=== PATIENT | female | born 1985 | race Caucasian/White ===

== ENCOUNTER 2020-10-12 10:40 | Outpatient (REF) | payer OTHER, SELFPAY ==
[2020-10-12 11:48] LABS: MANUAL DIFF FLAG NO
[2020-10-12 11:55] LABS: Basophils Percent Auto 0.5 % (0-2); Eosinophils Absolute Auto 0.2 X10*3/uL (0.0-0.4); Eosinophils Percent Auto 3.1 % (0-4); Hematocrit 44.1 % (37-47); Hemoglobin 14.7 g/dl (12.0-16.0); Imm Gran Abs Auto 0.02 X10*3/uL (0.00-0.03); Imm Gran Pct Auto 0.3 % (0.0-0.4); Lymphocytes Absolute Auto 3.5 X10*3/uL (1.2-4.9); Lymphocytes Percent Auto 45.9 % (20-40); Mean Corpuscular HGB Conc 33.3 g/dl (31.0-35.0); Mean Corpuscular Hemoglobin 26.9 pg (27.0-33.0); Mean Corpuscular Volume 80.8 fL (80-98); Mean Platelet Volume 12.1 fL (9.4-12.3); Monocytes Absolute Auto 0.4 X10*3/uL (0.1-1.2); Monocytes Percent Auto 5.9 % (2-11); Neutrophils Absolute Auto 3.3 X10*3/uL (2.0-8.3); Neutrophils Percent Auto 44.3 % (45-73); Platelet Count 234 X10*3/uL (160-400); Red Blood Count 5.46 X10*6/uL (4.20-5.50); Red Cell Distribution Width 13.8 % (11.0-16.0); White Blood Count 7.5 X10*3/uL (4.8-10.8)
[2020-10-12 12:35] LABS: Hemoglobin A1c % > 14.0 %
[2020-10-12 12:38] LABS: Thyroid Stimulating Hormone 2.04 uIU/mL (0.32-4.0)
[2020-10-12 12:47] LABS: Alanine Aminotransferase 42 U/L (0-31); Albumin Level 4.2 g/dL (3.5-5.0); Alkaline Phosphatase 96 U/L (39-117); Anion Gap 13 (12-20); Aspartate Amino Transferase 25 U/L (5-31); Bilirubin Total 0.7 mg/dL (0.0-1.0); Blood Urea Nitrogen 11 mg/dL (9-16); Calcium 9.3 mg/dL (8.4-10.2); Carbon Dioxide 28 mmol/L (22-29); Chloride 99 mmol/L (96-108); Cholesterol 136 mg/dL; Estimated Glomerular Filt Rate > 60; Glucose Fasting 322 mg/dL (60-99); HDL Cholesterol 28 mg/dL; LDL Cholesterol Calculated 85 mg/dl; Potassium 4.2 mmol/L (3.3-5.1); Sodium 136 mmol/L (135-145); Triglycerides 118 mg/dL
== END 2020-10-12 10:41 | disposition home or self-care (01) ==
LOC: HO.LAB 10:40
PROVIDERS: PCP Internal Medicine; Visit Provider Internal Medicine
DX: Z00.00 Encounter for general adult medical examination without abnormal findings (principal); E11.9 Type 2 diabetes mellitus without complications; E03.9 Hypothyroidism, unspecified
CPT/HCPCS: 36415; 80053; 80061; 82043; 83036; 84443; 85025

== ENCOUNTER 2021-01-10 09:09 | Emergency (ER) | payer OTHER, SELFPAY ==
--- NOTE | ~2021-01-10 | XR_ITS ---
EXAMINATION: XR FOOT, RIGHT CLINICAL INFORMATION: Trauma with pain right first toe. COMPARISON: None TECHNIQUE: AP, lateral, and oblique views of the right foot. FINDINGS: There is no evidence of acute fracture or dislocation of the right foot. Soft tissue swelling seen about the first distal phalanx. XR/XR foot RT min 3V IMPRESSION: No significant bony abnormality of the right foot identified.
[2021-01-10 10:14] VITALS: BP 138/86; PULSE 77; RESP 16; TEMP 36.4; O2SAT 98
[2021-01-10 10:53] VITALS: BMI 49.9
--- NOTE | 2021-01-10 11:02 | ED_ITS ---
HPI - Extremity Injury (Lower) General Chief Complaint: Extremity Injury, Lower Stated Complaint: Foot pain Time Seen by Provider: 01/10/21 10:19 Source: patient Mode of arrival: ambulatory Limitations: no limitations History of Present Illness HPI Narrative: 35 yo female here with complaints of right great toe pain after injury from pallet kelvin two days ago. Fevers, chills, redness, drainage Related Data Previous Rx's Medication Instructions Recorded metformin 500 mg tablet 500 mg PO BID #180 tab 10/15/20 blood sugar diagnostic (FreeStyle #100 ea 10/29/20 Lite Strips) blood-glucose meter (FreeStyle #1 ea 10/29/20 Lite Meter) lancets 28 gauge (FreeStyle #100 ea 10/29/20 Lancets) Allergies Allergy/AdvReac Type Severity Reaction Status Date / Time No Known Allergies Allergy Verified 10/15/20 15:31 Review of Systems Review of Systems: Yes all other systems are reviewed and are negative Constitutional: Constitutional: Reports no additional constitutional comp laints, Denies body ache(s), Denies chills, Denies fever(s), Denies headache(s) and Denies weakness Eyes: Eyes: Reports no additional eye complaints and Denies change in vision ENT: Reports system reviewed and no additional complaints, except as documented, Denies dizziness, Denies headache(s), Denies nasal congestion, Denies nasal discharge and Denies neck pain Cardiovascular: Cardiovascular: Reports no additional cardiovascular complaints, Denies chest pain, Denies leg edema and Denies dyspnea Respiratory: Respiratory: Reports no additional respiratory complaints, Denies cough and Denies dyspnea Gastrointestinal: Gastrointestinal: Reports no additional gastrointestinal complaints, Denies abdominal pain, Denies diarrhea, Denies nausea and Denies vomiting Genitourinary: Genitourinary: Reports no additional female genitourinary complaints and Denies urinary incontinence Musculoskeletal: Musculoskeletal: Reports no additional musculoskeletal complaints, Denies back pain, Reports arthralgias, Denies joint swelling, Denies neck pain, Denies numbness and Denies tingling Integumentary/Breasts: Skin/Breast: Reports system reviewed and no additional complaints, except as docu and Denies rash Neurologic: Reports system reviewed and no additional complaints, except as documented, Denies dizziness, Denies headache(s), Denies numbness, Denies tingling and Denies weakness PMFSH Past Medical History Medical History (Updated 01/10/21 @ 11:03 by Yolette Rich NP) Diabetes mellitus Surgical History History of hernia surgery Family History Family History Mother No problems noted. Father No problems noted. Social History Social History Alcohol intake: never Advance Directives: Yes Advance Directives Information Provided: Yes Advance Directives on File: No Patient : No Physical Exam Vital Signs: Vital Signs: Last Vital Signs Temp 97.6 F 01/10/21 10:14 Pulse 77 01/10/21 10:14 Resp 16 01/10/21 10:14 BP 138/86 01/10/21 10:14 Pulse Ox 98 01/10/21 10:14 Body Mass Index 49.9 Course Course Course Narrative: 35 yo female here with great toe pain s/p crush injury 2 days ago. X-rays show no fracture. Likely contusion. Small abrasion just under the distal nail bed but nail is intact. Placed in post-op shoe for comfort. Reviewed worrisome signs.symptoms with patient and when to return to ED. Comfortable with discharge home. Procedures Procedure Narrative Procedure Narrative: post operative shoe MDM - Extremity Injury (Lower) Medical Records Attestation: I reviewed the patient's medical records. Lab Data Attestation: I reviewed the patient's lab results. Imaging Data foot x-ray: Attestation: I personally reviewed and interpreted this imaging study as follows: Radiologist's impression: EXAMINATION: XR FOOT, RIGHT CLINICAL INFORMATION: Trauma with pain right first toe.? COMPARISON: None? TECHNIQUE: AP, lateral, and oblique views of the right foot. FINDINGS: There is no evidence of acute fracture or dislocation of the right foot. Soft tissue swelling seen about the first distal phalanx.? XR/XR foot RT min 3V IMPRESSION: No significant bony abnormality of the right foot identified. Discharge Plan Discharge Clinical Impression: Contusion of foot, right Qualifiers: Encounter type: initial encounter Qualified Code(s): S90.31XA - Contusion of right foot, initial encounter Patient Disposition: Home, Self-Care Instructions: Foot Contusion (ED) Additional Instructions: Your x-rays show no acute fracture Ice, elevate, shoe for comfort Epsom salt soaks 15 minutes three times daily Prescriptions: No Action (DME) FreeStyle Lite Strips Strip See Rx Instructions .ROUTE .MEDSUPPLY Qty: 100 RF: 8 (DME) blood-glucose meter [FreeStyle Lite Meter] Kit See Rx Instructions .ROUTE .MEDSUPPLY Qty: 1 RF: 0 (DME) lancets [FreeStyle Lancets] 28 gauge misc See Rx Instructions .ROUTE .MEDSUPPLY Qty: 100 RF: 8 metformin 500 mg tablet 500 mg PO BID Qty: 180 RF: 4 Referrals: Joshua Becerra MD [Primary Care Provider] - 2 days Stand Alone Forms: Work/School Release
== END 2021-01-10 11:37 | disposition home or self-care (01) ==
PROVIDERS: Emergency Provider Emergency Medicine; PCP Internal Medicine
DX: S90.31XA Contusion of right foot, initial encounter (principal); S90.411A Abrasion, right great toe, initial encounter; Y29.XXXA Contact with blunt object, undetermined intent, initial encounter; M79.671 Pain in right foot; Y93.9 Activity, unspecified; Y92.9 Unspecified place or not applicable; Y99.9 Unspecified external cause status; Z79.899 Other long term (current) drug therapy
CPT/HCPCS: 73630; 99284

== ENCOUNTER 2021-01-25 00:31 | Emergency (ER) | payer OTHER, SELFPAY ==
[2021-01-25 01:48] VITALS: BP 118/85; PULSE 83; RESP 20; TEMP 36.8; O2SAT 97; BMI 49.9
--- NOTE | 2021-01-25 05:23 | PC.NURSE ---
Pt requesting to leave, states she wants to f/u with . aware. MD at bedside for primary eval.
--- NOTE | 2021-01-25 05:56 | ED.GENADULT ---
HPI - General Adult General Chief complaint: Extremity Injury, Lower Stated complaint: Leg pain Time Seen by Provider: 01/25/21 05:55 Source: patient Mode of arrival: ambulatory History of Present Illness HPI narrative: 35-year-old female with history of diabetes who presents with 2 days of worsening bilateral lower extremity discomfort after being on her feet all day at work. The pain goes from her feet up into her lower legs but has not been associated with recent travel, calf pain, immobility, fevers, chills. Related Data Previous Rx's Medication Instructions Recorded metformin 500 mg tablet 500 mg PO BID #180 tab 10/15/20 blood sugar diagnostic (FreeStyle #100 ea 10/29/20 Lite Strips) blood-glucose meter (FreeStyle #1 ea 10/29/20 Lite Meter) lancets 28 gauge (FreeStyle #100 ea 10/29/20 Lancets) Allergies Allergy/AdvReac Type Severity Reaction Status Date / Time No Known Allergies Allergy Verified 01/15/21 11:00 Review of Systems Review of Systems: Pertinent positives and negatives as stated in HPI 10 point review of systems is otherwise negative. PMFSH Past Medical History Source: nursing notes reviewed Medical History Diabetes mellitus Morbid obesity Type 2 diabetes mellitus with obesity Surgical History History of hernia surgery Family History Family History Mother No problems noted. Father No problems noted. Social History Social History Alcohol intake: never Patient Tobacco Use Status: Never used Tobacco Second Hand Smoke Exposure: No Advance Directives: No Advance Directives Information Provided: No Patient : No Physical Exam Vital Signs: Vital Signs: Last Vital Signs Temp 98.2 F 01/25/21 01:48 Pulse 83 01/25/21 01:48 Resp 20 01/25/21 01:48 BP 118/85 01/25/21 01:48 Pulse Ox 97 01/25/21 01:48 Body Mass Index 49.9 VITAL SIGNS: Reviewed. GENERAL: Obese, Well developed, well nourished, in no acute distress. HEAD: Normocephalic/atraumatic EYES: PERRLA, EOMI LUNGS: Normal breath sounds. No adventitious sounds or accessory muscle use. SpO2<97> CARDIOVASCULAR: Regular rate and rhythm without noted murmurs ABDOMEN: Soft, non-tender, non-distended with bowel sounds. MUSCULOSKELETAL: No tenderness, deformities, or effusions noted on gross inspection. EXTREMITIES: No cyanosis, clubbing or edema, no erythema to bilateral feet SKIN: Inspection of the skin reveals no rashes NEUROLOGIC: Alert and oriented x 4 Course Course Course Narrative: This is a 35-year-old female with history and clinical presentation consistent with bilateral leg pain secondary to long hours of standing and being obese. There is no evidence to suggest DVT, cellulitis. Patient was given extensive instructions regarding appropriate footwear as well as the use of compression stockings. She acknowledges understanding and will be discharged home in stable condition with instructions to follow-up with her primary care provider. Discharge Plan Discharge Clinical Impression: Bilateral lower extremity pain Patient Disposition: Home, Self-Care Instructions: Leg Pain (ED), Venous Insufficiency (DC) Additional Instructions: 1. Use medias de compresi?n, hasta la rodilla, en ambas piernas. Debe ser un m?camilo de 30 mmHg. 2. Adem?s, debe adquirir buenos zapatos con suficiente soporte para soportar las largas horas que est? de pie. 3. Realice un seguimiento con betancur proveedor de atenci?n primaria en los pr?ximos 2-3 d?as para frederic reevaluaci?n y un tratamiento ambulatorio adicional. Regrese a la liborio de emergencias si navneet s?ntomas empeoran de manera aguda. Prescriptions: No Action (DME) FreeStyle Lite Strips Strip See Rx Instructions .ROUTE .MEDSUPPLY Qty: 100 RF: 8 (DME) blood-glucose meter [FreeStyle Lite Meter] Kit See Rx Instructions .ROUTE .MEDSUPPLY Qty: 1 RF: 0 (DME) lancets [FreeStyle Lancets] 28 gauge misc See Rx Instructions .ROUTE .MEDSUPPLY Qty: 100 RF: 8 metformin 500 mg tablet 500 mg PO BID Qty: 180 RF: 4 Referrals: Joshua Becerra MD [Primary Care Provider] - 2 days Stand Alone Forms: Work/School Release Print Language: Vietnamese
== END 2021-01-25 06:16 | disposition home or self-care (01) ==
PROVIDERS: Emergency Provider Student in an Organized Health Care Education/Training Program; PCP Internal Medicine
DX: M79.604 Pain in right leg (principal); M79.605 Pain in left leg; Z79.899 Other long term (current) drug therapy
CPT/HCPCS: 99281; 99283

== ENCOUNTER 2021-10-30 06:34 | Outpatient (REF) | payer OTHER, SELFPAY ==
[2021-10-30 06:56] LABS: MANUAL DIFF FLAG NO
[2021-10-30 07:31] LABS: Basophils Percent Auto 0.4 % (0-2); Eosinophils Absolute Auto 0.2 X10*3/uL (0.0-0.4); Eosinophils Percent Auto 2.5 % (0-4); Hematocrit 41.6 % (37.0-47.0); Hemoglobin 13.9 g/dl (12.0-16.0); Imm Gran Abs Auto 0.01 X10*3/uL (0.00-0.03); Imm Gran Pct Auto 0.1 % (0.0-0.4); Lymphocytes Absolute Auto 3.4 X10*3/uL (1.2-4.9); Lymphocytes Percent Auto 45.7 % (20-40); Mean Corpuscular HGB Conc 33.4 g/dl (31.0-35.0); Mean Corpuscular Hemoglobin 26.8 pg (27.0-33.0); Mean Corpuscular Volume 80.2 fL (80.0-98.0); Mean Platelet Volume 11.5 fL (9.4-12.3); Monocytes Absolute Auto 0.5 X10*3/uL (0.1-1.2); Monocytes Percent Auto 6.5 % (2-11); Neutrophils Absolute Auto 3.4 x10*3/uL (2.0-8.3); Neutrophils Percent Auto 44.8 % (45-73); Platelet Count 249 X10*3/uL (160-400); Red Blood Count 5.19 X10*6/uL (4.20-5.50); Red Cell Distribution Width 13.5 % (11.0-16.0); White Blood Count 7.5 X10*3/uL (4.8-10.8)
[2021-10-30 07:41] LABS: Estimated Average Glucose 329 mg/dL; Hemoglobin A1c % 13.1 %
[2021-10-30 07:55] LABS: Alanine Aminotransferase 45 U/L (0-31); Albumin Level 4.2 g/dL (3.5-5.0); Alkaline Phosphatase 85 U/L (39-117); Anion Gap 14 (12-20); Aspartate Amino Transferase 24 U/L (5-31); Bilirubin Total 0.5 mg/dL (0.0-1.0); Blood Urea Nitrogen 16 mg/dL (9-16); Calcium 9.8 mg/dL (8.4-10.2); Carbon Dioxide 26 mmol/L (22-29); Chloride 98 mmol/L (96-108); Cholesterol 128 mg/dL; Estimated Glomerular Filt Rate > 60; Glucose Fasting 321 mg/dL (60-99); HDL Cholesterol 28 mg/dL; LDL Cholesterol Calculated 76 mg/dl; Potassium 4.2 mmol/L (3.3-5.1); Sodium 134 mmol/L (135-145); Total Protein 7.3 g/dL (6.5-8.0); Triglycerides 123 mg/dL
[2021-10-30 08:19] LABS: Creatinine Urine 101.08 mg/dL; Microalbum/Creatinine Ratio Ur 39.5 ug/mg cr
== END 2021-10-30 06:35 | disposition home or self-care (01) ==
LOC: HO.LAB 06:34
PROVIDERS: PCP Internal Medicine; Visit Provider Internal Medicine
DX: Z00.00 Encounter for general adult medical examination without abnormal findings (principal); Z13.9 Encounter for screening, unspecified; Z13.0 Encounter for screening for diseases of the blood and blood-forming organs and certain disorders involving the immune mechanism; E11.69 Type 2 diabetes mellitus with other specified complication; E66.01 Morbid (severe) obesity due to excess calories
CPT/HCPCS: 36415; 80053; 80061; 82043; 83036; 85025

== ENCOUNTER → 2021-11-06 12:50 | Outpatient (BNVA) | payer OTHER, SELFPAY | PROVIDERS: PCP Internal Medicine; Visit Provider Dietitian, Registered | DX: E11.69 Type 2 diabetes mellitus with other specified complication (principal); E66.9 Obesity, unspecified; Z68.43 Body mass index [BMI] 50.0-59.9, adult | CPT/HCPCS: 97802 ==

== ENCOUNTER 2022-10-22 07:02 | Outpatient (REF) | payer OTHER, SELFPAY ==
[2022-10-22 07:13] LABS: MANUAL DIFF FLAG NO
[2022-10-22 07:36] LABS: Basophils Absolute Auto 0.1 X10*3/uL (0.0-0.2); Basophils Percent Auto 0.6 % (0-2); Eosinophils Absolute Auto 0.2 X10*3/uL (0.0-0.4); Eosinophils Percent Auto 2.5 % (0-4); Hematocrit 43.3 % (37.0-47.0); Hemoglobin 14.6 g/dl (12.0-16.0); Imm Gran Abs Auto 0.02 X10*3/uL (0.00-0.03); Imm Gran Pct Auto 0.3 % (0.0-0.4); Lymphocytes Absolute Auto 3.3 X10*3/uL (1.2-4.9); Mean Corpuscular HGB Conc 33.7 g/dl (31.0-35.0); Mean Corpuscular Hemoglobin 27.6 pg (27.0-33.0); Mean Corpuscular Volume 81.9 fL (80.0-98.0); Mean Platelet Volume 11.1 fL (9.4-12.3); Monocytes Absolute Auto 0.4 X10*3/uL (0.1-1.2); Monocytes Percent Auto 5.2 % (2-11); Neutrophils Absolute Auto 3.9 x10*3/uL (2.0-8.3); Neutrophils Percent Auto 49.4 % (45-73); Platelet Count 247 X10*3/uL (160-400); Red Blood Count 5.29 X10*6/uL (4.20-5.50); Red Cell Distribution Width 12.5 % (11.0-16.0); White Blood Count 7.9 X10*3/uL (4.8-10.8)
[2022-10-22 08:30] LABS: Alanine Aminotransferase 49 U/L (0-31); Albumin Level 4.2 g/dL (3.5-5.0); Alkaline Phosphatase 94 U/L (39-117); Anion Gap 13 (12-20); Aspartate Amino Transferase 28 U/L (5-31); Bilirubin Total 0.8 mg/dL (0.0-1.0); Blood Urea Nitrogen 14 mg/dL (9-16); Calcium 9.4 mg/dL (8.4-10.2); Carbon Dioxide 25 mmol/L (22-29); Chloride 102 mmol/L (96-108); Cholesterol 136 mg/dL; Estimated Glomerular Filt Rate > 60; Glucose Fasting 302 mg/dL (60-99); HDL Cholesterol 28 mg/dL; LDL Cholesterol Calculated 90 mg/dl; Potassium 4.2 mmol/L (3.3-5.1); Sodium 136 mmol/L (135-145); Total Protein 7.1 g/dL (6.5-8.0); Triglycerides 93 mg/dL
[2022-10-22 08:32] LABS: Estimated Average Glucose 295 mg/dL; Hemoglobin A1c % 11.9 %
[2022-10-22 09:51] LABS: Thyroid Stimulating Hormone 3.17 uIU/mL (0.32-4.0)
[2022-10-22 11:02] LABS: Creatinine Urine 92.56 mg/dL; Microalbum/Creatinine Ratio Ur 33.4 ug/mg cr
== END 2022-10-22 07:03 | disposition home or self-care (01) ==
LOC: HO.LAB 07:02
PROVIDERS: PCP Internal Medicine; Visit Provider Internal Medicine
DX: E11.69 Type 2 diabetes mellitus with other specified complication (principal); E66.01 Morbid (severe) obesity due to excess calories; E03.9 Hypothyroidism, unspecified; N28.9 Disorder of kidney and ureter, unspecified; E78.5 Hyperlipidemia, unspecified; D64.9 Anemia, unspecified
CPT/HCPCS: 36415; 80053; 80061; 82043; 83036; 84443; 85025

== ENCOUNTER 2023-12-25 16:20 | Emergency (ER) | payer OTHER, SELFPAY ==
--- NOTE | ~2023-12-25 | US_ITS ---
EXAMINATION: US PELVIS CLINICAL INFORMATION: Pain. COMPARISON: None available. TECHNIQUE: Ultrasound of the pelvis is performed using transabdominal transducers along with Doppler. Transvaginal imaging is performed due to inadequate visualization transabdominally. Transvaginal study declined. . FINDINGS: Uterus: The uterus is anteverted and measures 10 x 4.8 x 6.6 cm. The double wall endometrial thickness is 17 mm. The uterus is smooth in contour and has normal myometrial echogenicity. No visible fibroid. Adnexa: Both ovaries are visualized. There is normal color flow to the adnexa. There is no ovarian torsion. There is no pelvic ascites or fluid collection. Right ovary measures 3.5 x 2.5 x 2.7 cm. 12.4 Left ovary measures 4.6 x 4 0.4, 0.6 cm. 44.3 US/US pelvic and transvaginal IMPRESSION: No significant abnormality identified.
--- NOTE | ~2023-12-25 | CT_ITS ---
EXAMINATION: CT ABDOMEN AND PELVIS WITHOUT CONTRAST CLINICAL INFORMATION: Flank pain COMPARISON: None available. TECHNIQUE: Multidetector volumetric imaging was performed from the superior aspect of the liver through the pubic symphysis. Sagittal and coronal reformatted images were obtained on the technologist's workstation. This CT examination was performed using dose optimization techniques as appropriate, variously including the following: *Automated exposure control *Adjustment of mA and/or kV according to patient size (this includes techniques or standardized protocols for targeted exams where dose is matched to indication/reason for exam; i.e. extremities or head) *Use of iterative reconstruction technique DLP: 1216 mGy-cm FINDINGS: LUNG BASES: The visualized lung bases are unremarkable. LIVER, GALLBLADDER, AND BILIARY TREE: Liver is enlarged. Right lobe liver measures 22 cm superior-inferior. No focal liver lesion or intrahepatic bile duct dilatation. The gallbladder is unremarkable with no evidence of radiopaque gallstones, gallbladder wall thickening, or obvious pericholecystic inflammatory changes. PANCREAS: Unremarkable. SPLEEN: Unremarkable. ADRENAL GLANDS: Unremarkable. KIDNEYS AND URETERS: The kidneys are normal in size, shape, and attenuation. No hydronephrosis, hydroureter, or calculi seen. No perinephric stranding. BLADDER: Unremarkable. GASTROINTESTINAL TRACT: The small and large bowel are unremarkable. The appendix is unremarkable. ABDOMINAL WALL: No significant hernia is appreciated. LYMPH NODES: Normal. VASCULAR: Unremarkable. PELVIC VISCERA: Uterus is anteverted. Left ovary is larger than the right. Left ovary measures about 5.5 x 3.7 cm. The right ovary measures 3.2 x 3 cm. There is edema in the fat planes around the left ovary. No significant fluid however in the cul-de-sac. OSSEOUS STRUCTURES: Unremarkable. CT/CT abdomen pelvis wo IV con IMPRESSION: 1. Left ovary is larger than the right. There is edema in the fat planes around the left ovary. No significant fluid however in the cul-de-sac. Consider pelvic ultrasound for further evaluation. 2. Normal kidneys, ureter and bladder. 3. Hepatomegaly. Fleischner guidelines were followed.
--- NOTE | ~2023-12-25 | US_ITS ---
See above combined report for details.
--- NOTE | ~2023-12-25 | XR_ITS ---
EXAMINATION: XR CHEST CLINICAL INFORMATION: Shortness of breath. COMPARISON: None available. TECHNIQUE: 2 views of the chest were obtained. FINDINGS: Normal appearance of the cardiomediastinal silhouette. Slightly increased reticular markings in the medial right lower lung. No dense consolidation. No pleural effusion or pneumothorax. No acute osseous findings. Visualized upper abdomen is within normal limits. XR/XR chest 2V IMPRESSION: Slightly increased reticular markings in the medial right lower lung which could be related with bronchovascular crowding or focal small airways disease. Recommend clinical correlation and follow-up to ensure resolution.
[2023-12-25 16:56] VITALS: BP 157/86; PULSE 96; RESP 18; TEMP 36.4; O2SAT 98; BMI 47.3
--- NOTE | 2023-12-25 16:59 | ED_ITS ---
HPI - General Adult General Chief complaint: Abdominal Pain Stated complaint: body pain, sob, nausea Time Seen by Provider: 12/25/23 16:58 Source: patient Mode of arrival: ambulatory Limitations: no limitations History of Present Illness ED Provider: Donya Ha PA-C HPI narrative: Patient is a 38 year old assigned female at with a history of DM presenting to the emergency department today with abdominal pain, flank pain, nausea, vomiting, diarrhea, and painful urination. Patient states that over the last 4 days she has had abdominal pain, nausea, vomiting, diarrhea, painful urination, and bilateral flank pain. Patient denies any dizziness, lightheadedness, fever, chills, blurry vision, double vision, loss of vision, chest pain, difficulty breathing, shortness of breath, night sweats, increased urinary frequency, increased urinary urgency, blood in her urine or stool, syncope or a near syncopal episode, recent trauma or falls, bowel incontinence, bladder incontinence, or any other complaints at this time. Onset (ago): day(s) (4) Location: back, abdomen, left and right Severity: mild Severity scale (1-10): 5 Relieving factors: none Exacerbating factors: none Associated symptoms: nausea/vomiting Treatments prior to arrival: none Related Data Previous Rx's ?Medication ?Instructions ?Recorded blood-glucose meter (FreeStyle #1 ea 10/29/20 Lite Meter kit) lancets 28 gauge (FreeStyle #100 ea 10/29/20 Lancets) blood sugar diagnostic (FreeStyle #100 ea 01/13/22 Lite Strips) fluconazole 100 mg tablet 100 mg PO DAILY #3 tabs 10/16/22 (Diflucan) metformin 500 mg tablet 500 mg PO BID #180 tabs 12/16/23 glyburide 5 mg tablet 5 mg PO DAILY #60 tabs 12/18/23 Allergies Allergy/AdvReac Type Severity Reaction Status Date / Time No Known Allergies Allergy Verified 12/25/23 16:56 Review of Systems 2 Constitutional: Constitutional: Reports no additional constitutional complaints, Denies chills, Denies fever(s) and Denies night sweats Eyes: Eyes: Reports no additional eye complaints, Denies blurry vision, Denies change in vision, Denies diplopia, Denies eye discharge, Denies loss of vision and Denies eye pain ENT: Denies dizziness Cardiovascular: Cardiovascular: Reports no additional cardiovascular complaints, Denies chest pain, Denies lightheadedness, Denies Loss of Consciousness and Denies dyspnea Respiratory: Respiratory: Reports no additional respiratory complaints and Denies dyspnea Gastrointestinal: Gastrointestinal: Reports no additional gastrointestinal complaints, Reports abdominal pain, Denies melena, Denies hematochezia, Denies change in bowel habits, Denies change in stool character, Reports nausea and Reports vomiting Genitourinary: Genitourinary: Denies hematuria, Denies urinary frequency, Reports dysuria, Reports flank pain, Denies urinary incontinence, Denies urinary hesitancy and Denies urinary urgency Musculoskeletal: Musculoskeletal: Reports no additional musculoskeletal complaints, Denies numbness and Denies tingling Neurologic: Denies dizziness, Denies loss of vision, Denies numbness and Denies tingling Psychiatric: Psychiatric: Reports no additional psychiatric complaints Endocrine: Endocrine: Reports no additional endocrine complaints Hematologic/Lymphatic: Hematologic/Lymphatic: Reports no additional hematologic/lymphatic complaints Allergic/Immunologic: Allergic/Immunologic: Reports no additional allergic/immunologic complaints [facility] Past Medical History Attestation statement: The following information was validated with the patient. Source: old records reviewed and nursing notes reviewed Medical History Morbid obesity Type 2 diabetes mellitus with obesity Diabetes mellitus Surgical History History of hernia surgery Family History Family History Mother No problems noted. Father No problems noted. Social History Social History Housing: Apartment Alcohol intake: never Patient Tobacco Use Status: Never used Tobacco e-Cigarette/Vaping Use: Never Used Second Hand Smoke Exposure: No Advance Directives: No Advance Directives Information Provided: No Do you have a plan to hurt others: No Plan service: No Current occupational status: employed Cognitive needs: No Hearing needs: No Vision needs: No Physical Exam ED Vital Signs: Vital Signs - 24 hr 12/25/23 16:56 12/25/23 18:26 Temperature 97.6 F 98.3 F Pulse Rate 96 96 Respiratory Rate 18 18 Blood Pressure 157/86 H 127/53 L Pulse Oximetry 98 98 Oxygen Delivery Method Room Air Room Air BMI result Body Mass Index 47.3 Const General: cooperative, no acute distress, alert and awake Nutritional Appearance: obese morbidly obese Orientation/consciousness: patient oriented x3 Limitations: no limitations HENMT Head: Yes normal to inspection and Yes atraumatic Ears: hearing grossly normal bilaterally and external ears normal General nose exam: Normal external nose present, no nasal discharge noted and no epistaxis Face and sinus: Yes normal facial exam, No abrasion and No laceration Mouth: Normal oral and palatal mucosa present, no drooling and no muffled voice Eyes General: appearance normal, both eyes and all related structures Periorbital: periorbital findings normal Eyelids: Yes eyelids normal Conjunctivae: conjunctivae normal Pupils: Equal, round and reactive pupils present EOM: EOMs intact bilaterally Neck Neck: Yes normal visual inspection, Yes full ROM and Yes no lymphadenopathy Chest Chest palpation & inspection: normal inspection of the chest Resp Effort & Inspection: normal respiratory effort and able to speak in complete sentences GI Inspection: Yes normal to inspection Palpation (GI): Soft to palpation, not firm, nontender, no guarding and not rigid Neuro General: patient oriented x3 and moves all extremities Cranial nerves: Yes Equal, round and reactive pupils present Cognition (Neuro): normal cognition Extrem General: Yes normal to inspection, Yes full ROM and Yes capillary refill normal Psych Appearance: grossly normal Mental Status: mental status grossly normal Affect: normal affect Attitude: cooperative Thought process: Normal thought process present Thought content: Normal thought content present Insight: Good insight present (Psych) Medications Administered Discontinued Medications Generic Name Dose Route Start Last Admin Trade Name Deonna PRN Reason Stop Dose Admin Lactated Ringer's 1,000 mls @ 999 mls/hr 12/25/23 17:30 12/25/23 17:34 Lr IV 12/25/23 18:30 999 mls/hr .Q1H1M TARIQ Administration Ketorolac Tromethamine 15 mg 12/25/23 18:44 12/25/23 18:48 Ketorolac Tromethamine 15 Mg/Ml Vial IVPUSH 12/25/23 18:45 15 mg ONCE ONE Administration Ondansetron HCl 4 mg 12/25/23 17:28 12/25/23 17:34 Ondansetron Hcl 4 Mg/2 Ml Vial IVPUSH 12/25/23 17:29 4 mg ONCE ONE Administration Medical Decision Making Medical Decision Making [facility] Narrative: Patient is a 38 year old assigned female at with a history of DM presenting to the emergency department today with abdominal pain, back pain, nausea, vomiting, and painful urination. Patient's physical exam was unremarkable. Patient's blood work showed an elevated blood sugar and hgba1c with normal beta hydroxy. Patient's urine showed glucose and blood. Patient's EKG was unremarkable. Patient's chest x-ray showed no acute process. Patient's abdomen/pelvis CT is pending. I explained my physical exam findings as well as all test results to the patient. I answered all questions asked by the patient. Patient's disposition will be determined after abdomen/pelvis CT is completed / read. Patient signed out to evening HOOD. Differential Diagnosis Differential Diagnoses: The differential diagnosis associated with the presentation includes Kidney stone Abdominal pain Nausea Vomiting Admission/Observation Consideration of admission/observation: Escalation of care including admission/observation considered Patient's disposition will be determined after imaging results and re- evaluation. Lab Data [facility] Lab Attestation statement: I reviewed the patient's lab results. My interpretation of these results are in the MDM Rationale portion of this note. 12/25/23 17:25 12/25/23 17:25 Labs: Lab Results 12/25/23 Range/Units 17:25 WBC 11.2 H (4.8-10.8) X10*3/uL RBC 5.47 (4.20-5.50) X10*6/uL Hgb 15.3 (12.0-16.0) g/dl Hct 44.3 (37.0-47.0) % MCV 81.0 (80.0-98.0) fL MCH 28.0 (27.0-33.0) pg MCHC 34.5 (31.0-35.0) g/dl RDW 13.4 (11.0-16.0) % Plt Count 277 (160-400) X10*3/uL MPV 11.3 (9.4-12.3) fL Immature Gran % (Auto) 0.3 (0.0-0.4) % Neut % (Auto) 67.4 (45-73) % Lymph % (Auto) 24.8 (20-40) % Centre % (Auto) 5.9 (2-11) % Eos % (Auto) 1.2 (0-4) % Baso % (Auto) 0.4 (0-2) % Lymph # (Auto) 2.8 (1.2-4.9) X10*3/uL Centre # (Auto) 0.7 (0.1-1.2) X10*3/uL Eos # (Auto) 0.1 (0.0-0.4) X10*3/uL Baso # (Auto) 0.0 (0.0-0.2) X10*3/uL Abs Immat Gran (auto) 0.03 (0.00-0.03) X10*3/uL Absolute Neuts (auto) 7.6 (2.0-8.3) x10*3/uL Absolute Nucleated RBC 0.000 (0.0-0.012) X10*3/uL Nucleated RBC % (auto) 0.0 (0.0-0.2) /100WBC Sodium 136 (135-145) mmol/L Potassium 3.8 (3.3-5.1) mmol/L Chloride 100 (96-108) mmol/L Carbon Dioxide 26 (22-29) mmol/L Anion Gap 14 (12-20) BUN 12 (9-16) mg/dL Creatinine 0.82 (0.5-1.4) mg/dL Estim Creat Clear Calc 127.1 Estimated GFR > 60 Random Glucose 324 H (60-115) mg/dL Estimat Average Glucose 341 mg/dL Hemoglobin A1c % 13.5 H (<6.0) % Calcium 9.9 (8.4-10.2) mg/dL Magnesium 2.0 (1.6-2.6) mg/dL Total Bilirubin 0.5 (0.0-1.0) mg/dL AST 22 (5-31) U/L ALT 41 H (0-31) U/L Alkaline Phosphatase 101 (39-117) U/L Troponin I High Sens < 2.7 (<3.5-17.0) ng/L Total Protein 7.8 (6.5-8.0) g/dL Albumin 4.2 (3.5-5.0) g/dL Lipase 32 (8-78) U/L Beta-Hydroxybutyrate 0.14 (0.02-0.27) mmol/L Urine Color Yellow Urine Appearance Clear Urine pH 5.5 (5.0-9.0) Ur Specific [place] >= 1.030 H (1.005-1.025) Urine Protein 30 (1+) H (Neg-Trace) mg/dL Urine Glucose (UA) >=1000 H (Negative) mg/dL Urine Ketones Trace (Negative) mg/dL Urine Blood Moderate (2+) H (Negative) Urine Nitrite Negative (Negative) Ur Leukocyte Esterase Negative (Negative) Urine RBC 3-5 H (0-2) /HPF Urine WBC 0-5 (0-5) /HPF Ur Squamous Epith Cells 0-2 (0-2) /HPF Urine Bacteria Trace (None Seen) Hyaline Casts 0-2 (0-2) /LPF Influenza Type A (PCR) NEGATIVE (Negative) Influenza Type B (PCR) NEGATIVE (Negative) RSV RNA Qual (PCR) NEGATIVE (Negative) SARS-CoV-2 RNA (RT-PCR) NEGATIVE (Negative) S. pyogenes GrpA RAMY Negative (Negative) Independent Interpretation I performed an independent interpretation of an: EKG and Plain X-Ray Interpretation: My interpretation is in agreement with the radiologist's impression of this imaging study. - EXAMINATION: XR CHEST CLINICAL INFORMATION: Shortness of breath. COMPARISON: None available. TECHNIQUE: 2 views of the chest were obtained. FINDINGS: Normal appearance of the cardiomediastinal silhouette. Slightly increased reticular markings in the medial right lower lung. No dense consolidation. No pleural effusion or pneumothorax. No acute osseous findings. Visualized upper abdomen is within normal limits. XR/XR chest 2V IMPRESSION: Slightly increased reticular markings in the medial right lower lung which could be related with bronchovascular crowding or focal small airways disease. Recommend clinical correlation and follow-up to ensure resolution. Dictated By: Moni Blas Signed By: Electronically signed by Moni Blas 12/25/23 1741 - Vent. Rate: 090 BPM Atrial Rate: 090 BPM P-R Int: 168 ms QRS Dur: 094 ms QT Int: 360 ms P-R-T Axes: 002 003 029 degrees QTc Int: 440 ms Normal sinus rhythm Normal ECG No previous ECGs available DD/ 1708 Radiology Impression Discussion of test interpretation with radiology: I have reviewed the radiologist's reading. Chronic Conditions Patient?s care impacted by: Diabetes Critical Care Time Critical Care Time Critical Care Time: Yes Total Critical Care Time: 34 Attestation: I spent 34 minutes of Critical Care Time with this patient. This does not include time spent on separately reported billable procedures. Discharge Plan Discharge Clinical Impression: Diabetes mellitus, Abdominal pain Patient Disposition: Still a Patient Prescriptions: No Action (DME) blood-glucose meter [FreeStyle Lite Meter] Kit See Rx Instructions .ROUTE .MEDSUPPLY Qty: 1 0RF Rx Instructions: To check blood sugars once a day (DME) lancets [FreeStyle Lancets] 28 gauge misc See Rx Instructions .ROUTE .MEDSUPPLY Qty: 100 8RF Rx Instructions: to check blood sugars once a day (DME) FreeStyle Lite Strips Strip See Rx Instructions .ROUTE .MEDSUPPLY Qty: 100 8RF Rx Instructions: to check blood sugars once a day metformin 500 mg tablet 500 mg PO BID Qty: 180 0RF glyburide 5 mg tablet 5 mg PO DAILY Qty: 60 5RF fluconazole [Diflucan] 100 mg tablet 100 mg PO DAILY Qty: 3 0RF Print Language: Maori
--- NOTE | 2023-12-25 17:00 | ECG_ITS ---
Test Reason : SOB Blood Pressure : / mmHG Vent. Rate : 090 BPM Atrial Rate : 090 BPM P-R Int : 168 ms QRS Dur : 094 ms QT Int : 360 ms P-R-T Axes : 002 003 029 degrees QTc Int : 440 ms Normal sinus rhythm Normal ECG No previous ECGs available Referred By: Donya Ha Electronically Signed By:Morgan Martinez
[2023-12-25 17:33] LABS: MANUAL DIFF FLAG NO
[2023-12-25] MEDS: ondansetron HCL 4 MG/2 ML VIAL IVPUSH (17:34)
[2023-12-25] MEDS: Lactated Ringers 1,000 ML 999 ML IV (17:34)
[2023-12-25 17:36] LABS: Appearance Urine Clear; Color Urine Yellow; Glucose Urine UA >=1000 mg/dL (Negative); Leukocyte Esterase Urine Negative (Negative); Nitrite Urine Negative (Negative); PH 5.5 (5.0-9.0); Specific Gravity - Urine >= 1.030 (1.005-1.025); UMIC TRIGGER UACC YES; Urine Blood Moderate (2+) (Negative); Urine Ketones Trace mg/dL (Negative); Urine Protein 30 (1+) mg/dL (Neg-Trace)
--- NOTE | 2023-12-25 17:41 | PC.NURSE ---
20gIV placed in the right AC - labs obtained/sent to lab. IVF/medication administered per provider order. effectiveness pending. pt remains able to speak in full/clear sentences w/o difficulty. no sob/wob noted. respirations even/unlabored. pt waiting for CT to be completed at this time. friend bedside for support. plan of care ongoing. call howard placed within reach.
[2023-12-25 17:42] LABS: Basophils Percent Auto 0.4 % (0-2); Eosinophils Absolute Auto 0.1 X10*3/uL (0.0-0.4); Eosinophils Percent Auto 1.2 % (0-4); Hematocrit 44.3 % (37.0-47.0); Hemoglobin 15.3 g/dl (12.0-16.0); Imm Gran Abs Auto 0.03 X10*3/uL (0.00-0.03); Imm Gran Pct Auto 0.3 % (0.0-0.4); Lymphocytes Absolute Auto 2.8 X10*3/uL (1.2-4.9); Lymphocytes Percent Auto 24.8 % (20-40); Mean Corpuscular HGB Conc 34.5 g/dl (31.0-35.0); Mean Platelet Volume 11.3 fL (9.4-12.3); Monocytes Absolute Auto 0.7 X10*3/uL (0.1-1.2); Monocytes Percent Auto 5.9 % (2-11); Neutrophils Absolute Auto 7.6 x10*3/uL (2.0-8.3); Neutrophils Percent Auto 67.4 % (45-73); Platelet Count 277 X10*3/uL (160-400); Red Blood Count 5.47 X10*6/uL (4.20-5.50); Red Cell Distribution Width 13.4 % (11.0-16.0); White Blood Count 11.2 X10*3/uL (4.8-10.8)
[2023-12-25 17:45] LABS: IDNOW Serial# 08D9AD1C
[2023-12-25 17:46] LABS: Bacteria Urine Trace (None Seen); Hyaline Casts Urine 0-2 /LPF (0-2); Squamous Epithelial Cell Urine 0-2 /HPF (0-2); Strep A Nucleic Acid Negative (Negative); WBC Urine 0-5 /HPF (0-5)
[2023-12-25 17:52] LABS: Alanine Aminotransferase 41 U/L (0-31); Albumin Level 4.2 g/dL (3.5-5.0); Alkaline Phosphatase 101 U/L (39-117); Anion Gap 14 (12-20); Aspartate Amino Transferase 22 U/L (5-31); Bilirubin Total 0.5 mg/dL (0.0-1.0); Blood Urea Nitrogen 12 mg/dL (9-16); Calcium 9.9 mg/dL (8.4-10.2); Carbon Dioxide 26 mmol/L (22-29); Chloride 100 mmol/L (96-108); Creatinine Clr Calc Pharmacy 127.1; Estimated Glomerular Filt Rate > 60; Glucose Random 324 mg/dL (60-115); Lipase 32 U/L (8-78); Potassium 3.8 mmol/L (3.3-5.1); Sodium 136 mmol/L (135-145); Total Protein 7.8 g/dL (6.5-8.0)
[2023-12-25 17:58] LABS: Troponin-I High Sensitivity < 2.7 ng/L (<3.5-17.0)
[2023-12-25 18:08] LABS: Estimated Average Glucose 341 mg/dL; Hemoglobin A1c % 13.5 % (<6.0)
--- NOTE | 2023-12-25 18:14 | PC.NURSE ---
pt searched by security - belongings remain bedside at this time.
[2023-12-25 18:15] LABS: Beta-Hydroxybutyrate 0.14 mmol/L (0.02-0.27)
[2023-12-25 18:17] LABS: Influenza A PCR NEGATIVE (Negative); Influenza B PCR NEGATIVE (Negative); Resp Syncy Virus RNA Qual PCR NEGATIVE (Negative); SARS COV2 PCR INHOUSE NEGATIVE (Negative)
[2023-12-25 18:26] VITALS: BP 127/53; PULSE 96; RESP 18; TEMP 36.8; O2SAT 98
--- NOTE | 2023-12-25 18:45 | PC.NURSE ---
pt verbalizing increase in abd pain - requesting medication. provider notified/aware.
[2023-12-25] MEDS: Ketorolac Tromethamine 15 MG/ML VIAL IVPUSH (18:48)
[2023-12-25 20:11] LABS: HCG Quantitative < 2 mIU/mL
[2023-12-25 23:02] VITALS: BP 120/68; PULSE 102; RESP 18; TEMP 37.3; O2SAT 96
[2023-12-26 01:48] VITALS: BP 112/62; PULSE 98; RESP 18; TEMP 37.2; O2SAT 97
== END 2023-12-26 01:49 | disposition home or self-care (01) ==
PROVIDERS: Physician Assistant Medical; Emergency Provider Emergency Medicine Emergency Medical Services; PCP Internal Medicine
DX: R10.9 Unspecified abdominal pain (principal); E11.9 Type 2 diabetes mellitus without complications; R06.02 Shortness of breath; R30.0 Dysuria; R11.2 Nausea with vomiting, unspecified; Z03.818 Encounter for observation for suspected exposure to other biological agents ruled out; R10.2 Pelvic and perineal pain; E66.9 Obesity, unspecified; Z68.42 Body mass index [BMI] 45.0-49.9, adult; Z79.84 Long term (current) use of oral hypoglycemic drugs; Z79.899 Other long term (current) drug therapy
CPT/HCPCS: 0241U; 36415; 71046; 74176; 76830; 76856; 80053; 81001; 82010; 83036; 83690; 83735; 84484; 84702; 85025; 87651; 93005; 93975; 96361; 96374; 96375; 99284; J1885; J2405; J7120

== ENCOUNTER → 2023-12-25 17:00 | Outpatient (BNV) | payer OTHER, SELFPAY | PROVIDERS: Emergency Provider Emergency Medicine Emergency Medical Services; PCP Internal Medicine; Visit Provider Internal Medicine Cardiovascular Disease | DX: R06.00 Dyspnea, unspecified (principal) | CPT/HCPCS: 93010 ==

== ENCOUNTER 2024-01-01 10:42 | Outpatient (AMB) | payer OTHER, SELFPAY ==
--- NOTE | 2024-01-01 10:46 | MHC.PC.OV ---
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 Accompanied by: Self / Same As Patient Allergies No Known Allergies Allergy (Verified 01/01/24 10:51) Medication List - Last Reconciled 01/01/24 by Joshua Becerra MD blood sugar diagnostic (FreeStyle Lite Strips) to check blood sugars once a day blood-glucose meter (FreeStyle Lite Meter kit) To check blood sugars once a day fluconazole (Diflucan) 100 mg PO DAILY glyburide 5 mg PO DAILY lancets (FreeStyle Lancets) to check blood sugars once a day metformin 500 mg PO BID naproxen 500 mg PO BID PRN ondansetron 4 mg PO Q8H PRN Tobacco use date assessed: 01/01/24 Dental Screening Dental Screen Date: 01/01/24 Did you have a dental visit in the last 12 months?: No Did you have a dental problem in the last 6 months where you did not have access to dental care?: No Was dental information given to patient?: Yes HPI [facility] [place] 12/25 body pain, sob, nausea HPI Details constipated with low back pain and rectal bleeding for a week or 2. [facility] Medical History Morbid obesity Type 2 diabetes mellitus with obesity Diabetes mellitus Surgical History History of hernia surgery Family History Mother No problems noted. Father No problems noted. Social History Housing: Apartment Alcohol intake: never Patient Tobacco Use Status: Never used Tobacco e-Cigarette/Vaping Use: Never Used Second Hand Smoke Exposure: No service: No Current occupational status: employed Cognitive needs: No Hearing needs: No Vision needs: No Questionnaire PHQ-9 Over the last 2 weeks, how often have you been bothered by any of the following problems? 1. Little interest or pleasure in doing things: not at all 2. Feeling down, depressed, or hopeless: not at all 3. Trouble falling or staying asleep, or sleeping too much: not at all 4. Feeling tired or having little energy: not at all 5. Poor appetite or overeating: not at all 6. Feeling bad about yourself - or that you are a failure or have let yourself or your family down: not at all 7. Trouble concentrating on things, such as reading the newspaper or watching television: not at all 8. Moving or speaking so slowly that other people could have noticed. Or the opposite - being so fidgety or restless that you have been moving around a lot more than usual: not at all 9. Thoughts that you would be better off or of hurting yourself in some way: not at all Total score: 0 Depression Screening Interpretation: Negative Depression Screening Done: Yes 57460 - PHQ-9 Billing: Yes Source: Developed by Drs. Hector Holman, Marilin Lomas, Stevie Tamez and colleagues, with an educational chika from [employer]. Thrive Questionnaire Date Thrive assessed: 01/01/24 I am a: Patient What is your living situation today?: I have a steady place to live Within the past 12 months, did the food you bought not last and you didn't have the money to get more?: Never true Within the past 12 months, did you worry whether your food would run out before you got money to buy more?: Never true Do you have trouble paying for medicines?: No Do you have trouble getting transportation to medical appointments?: No Do you have trouble paying your heating and electricity bill?: No Do you have trouble taking care of your child, family member or friend?: No Do you have trouble with day-to-day activities such as bathing, preparing meals, shopping, managing finances, etc.?: No Are you currently unemployed and looking for a job?: No Are you interested in more education?: No Please select the resources that you would like help with: None Currently or been in a relationship where the following occur: No concerns reported THRIVE Score: 0 AUDIT C Alcohol Use Questionnaire (AUDIT-C) 1. How often do you have a drink containing alcohol?: Never 3. How often do you have six or more drinks on one occasion?: Never Total Score: 0 Score Reviewed/Action Taken: Yes REYES-7 AMB Questionnaire REYES-7 Date REYES - 7 assessed: 01/01/24 Feeling nervous, anxious, or on edge: 0 = Not at all Not being able to stop or control worryin = Not at all Worrying too much about different things: 0 = Not at all Trouble relaxin = Not at all Being so restless that it is hard to sit still: 0 = Not at all Becoming easily annoyed or irritable: 0 = Not at all Feeling afraid as if something awful might happen: 0 = Not at all Total REYES-7 score (0-4 normal; 5-9 mild; 10-14 moderate; 15-21 severe): 0 Source: Developed by Drs. Hector Holman, Marilin Lomas, Stevie Tamez and colleagues, with an educational chika from [employer]. REYES-7 Assessment Billing REYES-7 Assessment Tool: REYES-7 Assessment 86026 Review of Systems Const Denies chills, Denies headache(s) and Denies weight loss ENT Denies headache(s) Card Denies chest pain, Denies syncope, Denies irregular heart rhythm and Denies dyspnea Resp Denies chest congestion, Denies cough and Denies dyspnea GI Denies abdominal pain, Denies change in stool character, Denies nausea and Denies vomiting Musc Denies deformity and Denies joint swelling Neuro Denies syncope and Denies headache(s) Physical exam (Primary Care) Vital Signs: Last Vital Signs Pulse 87 01/01/24 10:51 BP 118/82 01/01/24 10:51 Pulse Ox 100 01/01/24 10:51 Oxygen Delivery Method Room Air 01/01/24 10:51 BMI result Body Mass Index 47.1 Tobacco/Smoking Status: Tobacco use Status Tobacco use date assessed 01/01/24 01/01/24 10:52 Patient Tobacco Use Status Never used Tobacco 01/01/24 10:46 e-Cigarette/Vaping Use Never Used 01/01/24 10:46 PHQ-9: PHQ-9 Score PHQ-9: Total score 0 01/01/24 10:47 Depression Screening Interpretation: Negative Thrive Assessment: Date of Thrive Assessment Date Thrive assessed 01/01/24 01/01/24 10:47 Currently or been in a relationship where the following occur: No concerns reported Const General: cooperative, comfortable, no acute distress and alert Neck Neck: Yes no lymphadenopathy Thyroid: Thyroid normal Resp Effort & Inspection: normal respiratory effort Auscultation: clear to auscultation bilaterally Percussion: percussion normal Cardio Jugular venous distension: no JVD Palpation: normal PMI Rate: regular rate Rhythm: regular rhythm Heart sounds: S1 normal heart sound present and S2 normal heart sound present GI Inspection: Yes normal to inspection Palpation (GI): No hepatosplenomegaly present Skin General skin exam: no rashes or lesions noted Extrem General: Yes no clubbing, cyanosis or edema Assessment and Plan Assessment & Plan (1) Rectal bleeding: Code(s): K62.5 - Hemorrhage of anus and rectum Plan: ref surg Orders: Referrals General Surgery Referral K62.5 - Hemorrhage of anus and rectum [employer] Referral N91.2 - Amenorrhea, unspecified Coding Level of Care Code Est Pt Level 3 (73062) Diagnoses Rectal bleeding K62.5 Additional Codes REYES-7 Assessment Billing - REYES-7 Assessment Tool: REYES-7 Assessment 60282 ([id number])
[2024-01-01 10:51] VITALS: BP 118/82; PULSE 87; O2SAT 100; BMI 47.1
== END 2024-01-01 11:01 | disposition home or self-care (01) ==
PROVIDERS: PCP Internal Medicine; Visit Provider Internal Medicine
DX: K62.5 Hemorrhage of anus and rectum (principal)
CPT/HCPCS: 99213

== ENCOUNTER 2024-01-20 08:59 | Outpatient (AMB) | payer OTHER, SELFPAY ==
[2024-01-20 09:07] VITALS: BMI 47.1
--- NOTE | 2024-01-20 09:07 | A.OFFVIS_ITS ---
Vital Signs 01/20/24 09:07 Height 5 ft 5 in Weight 283 lb BMI 47.1 Intake Visit Reasons: Hemorrhage of anus and rectum Intake Note: This patient was referred by Dr. Becerra for Hemorrhage of anus and rectum. Pt c/o; Onset 1 month, reports no pain for the past 4 days, reports constipation. 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 Accompanied by: Other Relationship Allergies No Known Allergies Allergy (Verified 01/20/24 09:14) Medication List - Last Reconciled 01/20/24 by Alexis Barrera MD blood sugar diagnostic (FreeStyle Lite Strips) to check blood sugars once a day blood-glucose meter (FreeStyle Lite Meter kit) To check blood sugars once a day fluconazole (Diflucan) 100 mg PO DAILY glyburide 5 mg PO DAILY lancets (FreeStyle Lancets) to check blood sugars once a day metformin 500 mg PO BID naproxen 500 mg PO BID PRN ondansetron 4 mg PO Q8H PRN tramadol 50 mg PO Q8H PRN HPI HPI Hemorrhage of anus and rectum: Details: 38-year-old female referred for passage of bright blood per rectum. She says she noticed this 2 weeks ago. She says that she had been constipated around that time. She sat on the toilet and noticed passage of bright blood and clots. She said she really did not have a bowel movement then. She says this happened for about 4 days. She says that another episode which was the last 1 happened about a week ago She has had no pain recently. She does admit to having pain around that time in the anus. [facility] Medical History (Updated 01/20/24 @ 09:35 by Alexis Barrera MD) Bleeding hemorrhoids Morbid obesity Type 2 diabetes mellitus with obesity Diabetes mellitus Surgical History History of hernia surgery Family History Mother No problems noted. Father No problems noted. Social History Housing: Apartment Alcohol intake: never Patient Tobacco Use Status: Never used Tobacco e-Cigarette/Vaping Use: Never Used Second Hand Smoke Exposure: No service: No Current occupational status: employed Cognitive needs: No Hearing needs: No Vision needs: No Review of Systems Const Denies chills and Denies fever(s) Card Denies chest pain, Denies dyspnea and Denies dyspnea on exertion Resp Denies cough, Denies dyspnea and Denies dyspnea on exertion GI Reports hematochezia and Denies change in bowel habits Denies hematuria Musc Denies back pain and Denies limited range of motion Neuro Denies focal weakness and Denies convulsions Psych Denies depression and Denies mood swings Physical Exam Vital Signs: BMI result Body Mass Index 47.1 Const General: comfortable and no acute distress Orientation/consciousness: patient oriented x3 Neck Neck: Yes no lymphadenopathy Resp Auscultation: clear to auscultation bilaterally Cardio Rhythm: regular rhythm GI Other: Rectal exam does not reveal any large external hemorrhoid, no fissure, no blood Palpation (GI): Soft to palpation, nontender and no guarding Neuro General: patient oriented x3 Office Procedures Anoscopy She was in kelvin-knife position. The anoscope was gently inserted. A full examination of the anal canal was done. Did have moderate size internal hemorrhoids. There was no thrombus. There was no bleeding there was no fissure or ulceration. There was no induration. She had good sphincter down. She had small external hemorrhoids in the anal canal. [id number] Assessment & Plan Assessment & Plan (1) Bleeding hemorrhoids: Code(s): K64.9 - Unspecified hemorrhoids Category: Medical Plan: She has had passage of bright blood per rectum along with clots 2 weeks ago. Examination shows internal hemorrhoids. Her bleeding appears to be from an outlet source with her hemorrhoids. There was no thrombus at this time. She admits to having been constipated around that time of her bleeding I explained to her my findings. I would hold off on recommending anoscopy unless she has had recurrent bleeding. I am going to prescribe her stool softeners. I had instructed her to come back to the office if she has recurrent issues. Coding Level of Care Code New Pt Level 3 (92549) Diagnoses Bleeding hemorrhoids K64.9 CPT Codes Details - CPT: 53228-[id number] ([id number])
== END 2024-01-20 09:39 | disposition home or self-care (01) ==
PROVIDERS: PCP Internal Medicine; Visit Provider Surgery
DX: K64.9 Unspecified hemorrhoids (principal)
CPT/HCPCS: 46600; 99203

== ENCOUNTER → 2024-01-20 08:59 | Outpatient (BNVA) | payer OTHER, SELFPAY | PROVIDERS: PCP Internal Medicine; Visit Provider Surgery | DX: K62.5 Hemorrhage of anus and rectum (principal); K64.8 Other hemorrhoids | CPT/HCPCS: 46600 ==

== ENCOUNTER 2025-02-11 16:23 | Emergency (ER) | payer OTHER, SELFPAY ==
--- NOTE | ~2025-02-11 | CT_ITS ---
CLINICAL HISTORY: left flank pain, suprapubic pain CT abdomen and pelvis with contrast Comparison: CT - CT ABDOMEN PELVIS W IV CON - 02/11/25 17:[address]/CA/SR - CT ABDOMEN PELVIS WITHOUT IV CONTRAST - 12/25/23 20:13 EDT Findings: The lung bases are clear. Gallbladder is within normal limits. There is mild left hydronephrosis. Solid organs are otherwise within normal limits. Mild diffuse left ureteral dilatation extending into the left pelvis adjacent to the left adnexa. No bowel obstruction, pneumoperitoneum, or pneumatosis. 13 mm short axis left periaortic lymph node enlargement. Mildly prominent left iliac chain lymph nodes. There is a tubular left adnexal focus with mural hyperemia, suggestive of an abnormal appearing fallopian tube. There is a 40 mm region of hypodensity within the left adnexa, suggestive of a follicular cyst versus abscess. Moderate surrounding fat stranding is present. Small amount of presacral fluid. Normal appendix. The bones are intact. IMPRESSION: 1. Left-sided tubo-ovarian abscess as described above. Reactive left para-aortic and left iliac chain adenopathy 2. Extrinsic compression/inflammation of the left ureter causing mild left hydronephrosis. This document has been electronically signed by: Yaima Cordoba MD on 02/11/2025 18:33:22
[2025-02-11 16:27] VITALS: BP 133/87; PULSE 102; RESP 18; TEMP 36.4; O2SAT 98; BMI 39.2
--- NOTE | 2025-02-11 16:30 | ED.GENADULT ---
[facility] - General Adult General Chief complaint: Abdominal Pain Stated complaint: abd pain radiating to back/nausea Time Seen by Provider: 02/11/25 16:24 Source: patient Mode of arrival: ambulatory Limitations: language barrier History of Present Illness ED Provider: Dr. Sofia HPI narrative: 39-year-old female history of uncontrolled diabetes, bleeding hemorrhoids , morbid obesity presented hospital today for evaluation of left flank pain and right suprapubic pain. Patient denies any vaginal discharge however does complain of dysuria. Patient states she also has some signs of bright rectal bleeding. She does have history of internal hemorrhoids in the past. She is also endorsing some nausea associated with this denies any diarrhea. Denies any fever. Related Data Previous Rx's ?Medication ?Instructions ?Recorded blood-glucose meter (FreeStyle #1 ea 10/29/20 Lite Meter kit) lancets 28 gauge (FreeStyle #100 ea 10/29/20 Lancets) blood sugar diagnostic (FreeStyle #100 ea 01/13/22 Lite Strips) glyburide 5 mg tablet 5 mg PO DAILY #60 tabs 12/18/23 naproxen 500 mg tablet 500 mg PO BID PRN pain #14 tabs 12/26/23 ondansetron 4 mg disintegrating 4 mg PO Q8H PRN nausea and 12/26/23 tablet vomiting #12 tabs tramadol 50 mg tablet 50 mg PO Q8H PRN pain #20 tabs 01/01/24 metformin 500 mg tablet 500 mg PO BID #180 tabs 03/18/24 Allergies Allergy/AdvReac Type Severity Reaction Status Date / Time No Known Allergies Allergy Verified 02/11/25 16:28 Review of Systems Review of Systems: Pertinent review of systems as mentioned in [facility]. All other system otherwise negative. [facility] Past Medical History [facility] Narrative: Medical history as mentioned in HPI Medical History (Updated 02/11/25 @ 20:35 by Frances Sofia DO) Bleeding hemorrhoids Morbid obesity Type 2 diabetes mellitus with obesity Diabetes mellitus Surgical History History of hernia surgery Family History Family History Mother No problems noted. Father No problems noted. Social History Social History Housing: Apartment Alcohol intake: never Patient Tobacco Use Status: Never used Tobacco Smoked in Last 30 Days: No e-Cigarette/Vaping Use: Never Used Second Hand Smoke Exposure: No Use of substances other than those prescribed or required for medical reasons: No Advance Directives: No Advance Directives Information Provided: No Patient : No service: No Current occupational status: employed Cognitive needs: No Hearing needs: No Vision needs: No Physical Exam ED Exam Exam: General: Pleasant, no distress, interacting appropriately Head: Normacephalic, atraumatic ENT: oral mucosa moist, neck supple, no tracheal deviation Cardiovascular: regular rate, regular rhythm, no murmurs, rubbing, gallops Respiratory: CTAB, no wheeze, rales, rhonchi Gastrointestinal: Soft, non distended, left flank pain reproducible on exam, right suprapubic pain reproducible as well. No sign of acute abdomen. Neurological: Awake and alert, no facial droop noted Skin: Warm and dry Psychiatric: Appropriate mood and thoughts Vital Signs: Vital Signs - 24 hr 02/11/25 19:36 02/11/25 20:35 02/11/25 21:03 Temperature Pulse Rate 109 H 96 Respiratory Rate 18 18 16 Blood Pressure 131/76 124/82 Pulse Oximetry 97 95 Oxygen Delivery Method Room Air Room Air 02/11/25 21:57 02/12/25 00:43 02/12/25 00:56 Temperature 101.4 F H 100.3 F 100.3 F Pulse Rate 107 H 98 Respiratory Rate 22 H 28 H Blood Pressure 115/85 134/75 Pulse Oximetry 96 96 Oxygen Delivery Method Room Air Room Air 02/12/25 02:24 02/12/25 05:55 02/12/25 06:00 Temperature 100.4 F 99.6 F 99.6 F Pulse Rate 101 H 93 98 Respiratory Rate 16 22 H 22 H Blood Pressure 129/77 136/86 136/86 Pulse Oximetry 94 95 95 Oxygen Delivery Method Room Air Room Air Room Air 02/12/25 08:43 02/12/25 08:45 02/12/25 12:25 Temperature 99.0 F 98.9 F Pulse Rate 102 H 104 H Respiratory Rate 20 20 20 Blood Pressure 137/71 143/74 H Pulse Oximetry 98 95 Oxygen Delivery Method Room Air Room Air 02/12/25 16:07 02/12/25 16:10 Temperature 97.3 F 97.3 F Pulse Rate 94 94 Respiratory Rate 18 18 Blood Pressure 108/70 108/70 Pulse Oximetry 95 95 Oxygen Delivery Method Room Air Room Air BMI result Body Mass Index 39.2 Course Course Course Narrative: RME, this is a rapid medical exam performed by Conor Bullock please refer to primary provider for complete H&P- 39-year-old female with past medical history significant for diabetes, hemorrhoids presents for evaluation of abdominal pain. Her pain is lower abdomen, wrapped around to her back. Denies any burning with urination or urinary frequency. Medications Administered Generic Name Dose Route Start Last Admin Trade Name Freq PRN Reason Stop Dose Admin Doxycycline Monohydrate 100 mg 02/11/25 23:00 02/12/25 08:44 Doxycycline Monohydrate 100 Mg Capsule PO 100 mg BID TARIQ Administration Glyburide 5 mg 02/12/25 09:45 02/12/25 12:55 Glyburide 5 Mg Tablet PO 5 mg DAILY TARIQ Administration Ketorolac Tromethamine 15 mg 02/12/25 12:36 02/12/25 12:55 Ketorolac Tromethamine 15 Mg/Ml Vial IVPUSH 15 mg QID PRN Administration Pain, Moderate(Pain Scale 4-6) Metronidazole 500 mg 02/12/25 09:00 02/12/25 08:43 Metronidazole 500 Mg Tablet PO 500 mg BID TARIQ Administration Discontinued Medications Generic Name Dose Route Start Last Admin Trade Name Freq PRN Reason Stop Dose Admin Acetaminophen 975 mg 02/11/25 21:58 02/11/25 22:05 Acetaminophen 325 Mg Tablet PO 02/11/25 21:59 975 mg ONCE ONE Administration Ceftriaxone Sodium 1 gm 02/11/25 18:44 02/11/25 19:29 Ceftriaxone Sodium 1 Gm Vial IVPUSH 02/11/25 18:45 1 gm ONCE ONE Administration Doxycycline Monohydrate 100 mg 02/11/25 18:44 02/11/25 19:29 Doxycycline Monohydrate 100 Mg Capsule PO 02/11/25 18:45 100 mg ONCE ONE Administration Sodium Chloride 1,000 mls @ 999 mls/hr 02/11/25 17:00 02/11/25 19:15 Ns IV 02/11/25 18:00 Infused .Q1H1M TARIQ Infusion Metronidazole 500 mg in 100 mls @ 100 mls/hr 02/11/25 18:44 02/11/25 22:23 Flagyl IV 02/11/25 19:43 Infused ONCE ONE Infusion Sodium Chloride 1,000 mls @ 999 mls/hr 02/11/25 22:15 02/11/25 22:51 Ns IV 02/11/25 23:15 999 mls/hr .Q1H1M TARIQ Administration Insulin Human Regular 5 unit 02/11/25 17:38 02/11/25 17:56 Insulin Regular, Human 100 Unit/Ml 10 Ml Vial IVPUSH 02/11/25 17:39 5 unit ONCE ONE Administration Iohexol 100 ml 02/11/25 18:00 02/11/25 18:01 Iohexol 350 Mg/Ml 100 Ml Infus..Btl IV 02/11/25 18:01 100 ml ONCE ONE Administration Ketorolac Tromethamine 15 mg 02/11/25 16:58 02/11/25 17:23 Ketorolac Tromethamine 15 Mg/Ml Vial IVPUSH 02/11/25 16:59 15 mg ONCE ONE Administration Morphine Sulfate 4 mg 02/11/25 20:07 02/11/25 20:35 Morphine Sulfate 4 Mg/Ml Cartridge IVPUSH 02/11/25 20:08 4 mg ONCE ONE Administration Protocol Morphine Sulfate 4 mg 02/12/25 01:02 02/12/25 01:29 Morphine Sulfate 4 Mg/Ml Cartridge IVPUSH 02/12/25 01:03 4 mg ONCE ONE Administration Protocol Morphine Sulfate 4 mg 02/12/25 03:02 02/12/25 03:29 Morphine Sulfate 4 Mg/Ml Cartridge IVPUSH 02/12/25 03:03 4 mg ONCE ONE Administration Protocol Morphine Sulfate 4 mg 02/12/25 06:50 02/12/25 08:43 Morphine Sulfate 4 Mg/Ml Cartridge IVPUSH 02/12/25 06:51 4 mg ONCE ONE Administration Protocol Ondansetron HCl 4 mg 02/11/25 16:58 02/11/25 17:23 Ondansetron Hcl 4 Mg/2 Ml Vial IVPUSH 02/11/25 16:59 4 mg ONCE ONE Administration Ondansetron HCl 4 mg 02/12/25 01:02 02/12/25 01:29 Ondansetron Hcl 4 Mg/2 Ml Vial IVPUSH 02/12/25 01:03 4 mg ONCE ONE Administration Medical Decision Making Medical Decision Making [facility] Narrative: This is a 39-year-old female history of internal hemorrhoids, diabetes, morbid obesity presented hospital today for evaluation of rectal bleeding left flank pain and right suprapubic pain. Patient stated this has been going for weeks now. We will plan to start patient's IV fluid with flare in a give a dose of IV Toradol, IV Zofran be given the patient as well. I suspect patient's rectal bleeding is from internal hemorrhoids. Her pain may be from constipation. Although on review of patient's previous CT imaging she does have history of left ovarian cyst. She had a negative ultrasound performed for left ovarian cyst. We will obtain a UA to rule out UTI. Abdominal lab work will be obtained as well. CT abdomen and pelvis will be obtained. Patient has leukocytosis of 14, blood culture and lactic acid will be obtained. CT abdomen and pelvis did show a 4 cm ovarian abscess. We will plan to start the patient on IV ceftriaxone, p.o. doxycycline and Flagyl. Discussed the case with Dr. Russell Altamirano OG DIRECTOR FINANCIAL PLANNING doctor at [facility]. Lab to accept the patient to his service however unfortunately there was no bed there at this time. The patient does not require emergent surgical intervention. Recommends schedule IV antibiotics. We will plan to hold the patient here in the ER until a bed becomes available. [facility] has a bed available the patient will be transferred. Differential Diagnosis Differential Diagnoses: The differential diagnosis associated with the presentation includes Diabetes, UTI, colitis, constipation, internal hemorrhoids Consult Healthcare Provider Management of the patient was discussed with: Software Engineer Backend AGRICULTURAL SERVICE WORKER Dr. Altamirano Lab Data [facility] Lab Attestation statement: I reviewed the patient's lab results. 02/12/25 17:46 02/12/25 17:46 Labs: Lab Results 02/11/25 02/11/25 02/11/25 Range/Units 16:44 18:06 18:10 WBC 14.4 H (4.8-10.8) X10*3/uL RBC 5.41 (4.20-5.50) X10*6/uL Hgb 15.5 (12.0-16.0) g/dl Hct 44.1 (37.0-47.0) % MCV 81.5 (80.0-98.0) fL MCH 28.7 (27.0-33.0) pg MCHC 35.1 H (31.0-35.0) g/dl RDW 12.7 (11.0-16.0) % Plt Count 209 (160-400) X10*3/uL MPV 11.1 (9.4-12.3) fL Immature Gran % (Auto) 0.3 (0.0-0.4) % Neut % (Auto) 77.7 H (45-73) % Lymph % (Auto) 16.0 L (20-40) % [place] % (Auto) 5.4 (2-11) % Eos % (Auto) 0.1 (0-4) % Baso % (Auto) 0.5 (0-2) % Lymph # (Auto) 2.3 (1.2-4.9) X10*3/uL [place] # (Auto) 0.8 (0.1-1.2) X10*3/uL Eos # (Auto) 0.0 (0.0-0.4) X10*3/uL Baso # (Auto) 0.1 (0.0-0.2) X10*3/uL Abs Immat Gran (auto) 0.05 H (0.00-0.03) X10*3/uL Absolute Neuts (auto) 11.2 H (2.0-8.3) x10*3/uL Absolute Nucleated RBC 0.000 (0.0-0.012) X10*3/uL Nucleated RBC % (auto) 0.0 (0.0-0.2) /100WBC VBG pH 7.39 (7.32-7.43) VBG pCO2 39 mmHg VBG pO2 47 mmHg VBG HCO3 24 (22-26) mmol/L VBG O2 Saturation 75.0 % VBG Base Excess -0.6 mmol/L Sodium 134 L (135-145) mmol/L Potassium 4.2 (3.3-5.1) mmol/L Chloride 102 (96-108) mmol/L Carbon Dioxide 20 L (22-29) mmol/L Anion Gap 16 (12-20) BUN 12 (9-16) mg/dL Creatinine 0.91 (0.5-1.4) mg/dL Estim Creat Clear Calc 108.9 Estimated GFR > 60 POC Glucose (60-115) mg/dL Random Glucose 494 H* (60-115) mg/dL Lactic Acid (0.5-2.0) mmol/L Calcium 9.5 (8.4-10.2) mg/dL Total Bilirubin 1.0 (0.0-1.0) mg/dL Direct Bilirubin 0.4 (0.0-0.5) mg/dL AST 22 (5-31) U/L ALT 39 H (0-31) U/L Alkaline Phosphatase 111 (39-117) U/L Total Protein 8.0 (6.5-8.0) g/dL Albumin 4.2 (3.5-5.0) g/dL Lipase 18 (8-78) U/L Beta-Hydroxybutyrate 0.35 H (0.02-0.27) mmol/L Beta HCG, Quant < 2 mIU/mL Urine Color Yellow Urine Appearance Clear Urine pH 6.0 (5.0-9.0) Ur Specific [place] >= 1.030 H (1.005-1.025) Urine Protein 30 (1+) H (Neg-Trace) mg/dL Urine Glucose (UA) >=1000 H (Negative) mg/dL Urine Ketones 15 (Negative) mg/dL Urine Blood Small (1+) H (Negative) Urine Nitrite Negative (Negative) Ur Leukocyte Esterase Negative (Negative) Urine RBC 0-2 (0-2) /HPF Urine WBC 0-5 (0-5) /HPF Ur Squamous Epith Cells 3-5 (0-2) /HPF Urine Bacteria None Seen (None Seen) Hyaline Casts 0-2 (0-2) /LPF 02/11/25 02/12/25 02/12/25 Range/Units 19:11 08:31 17:46 WBC 14.5 H (4.8-10.8) X10*3/uL RBC 4.60 (4.20-5.50) X10*6/uL Hgb 13.1 (12.0-16.0) g/dl Hct 38.4 (37.0-47.0) % MCV 83.5 (80.0-98.0) fL MCH 28.5 (27.0-33.0) pg MCHC 34.1 (31.0-35.0) g/dl RDW 12.9 (11.0-16.0) % Plt Count 195 (160-400) X10*3/uL MPV 10.7 (9.4-12.3) fL Immature Gran % (Auto) 0.5 H (0.0-0.4) % Neut % (Auto) 68.4 (45-73) % Lymph % (Auto) 23.7 (20-40) % [place] % (Auto) 6.5 (2-11) % Eos % (Auto) 0.5 (0-4) % Baso % (Auto) 0.4 (0-2) % Lymph # (Auto) 3.4 (1.2-4.9) X10*3/uL [place] # (Auto) 0.9 (0.1-1.2) X10*3/uL Eos # (Auto) 0.1 (0.0-0.4) X10*3/uL Baso # (Auto) 0.1 (0.0-0.2) X10*3/uL Abs Immat Gran (auto) 0.07 H (0.00-0.03) X10*3/uL Absolute Neuts (auto) 9.9 H (2.0-8.3) x10*3/uL Absolute Nucleated RBC 0.000 (0.0-0.012) X10*3/uL Nucleated RBC % (auto) 0.0 (0.0-0.2) /100WBC VBG pH (7.32-7.43) VBG pCO2 mmHg VBG pO2 mmHg VBG HCO3 (22-26) mmol/L VBG O2 Saturation % VBG Base Excess mmol/L Sodium 136 (135-145) mmol/L Potassium 4.1 (3.3-5.1) mmol/L Chloride 102 (96-108) mmol/L Carbon Dioxide 25 (22-29) mmol/L Anion Gap 13 (12-20) BUN 14 (9-16) mg/dL Creatinine 1.10 (0.5-1.4) mg/dL Estim Creat Clear Calc 90.1 Estimated GFR 56 POC Glucose 263 H (60-115) mg/dL Random Glucose 270 H (60-115) mg/dL Lactic Acid 1.9 (0.5-2.0) mmol/L Calcium 8.8 D (8.4-10.2) mg/dL Total Bilirubin (0.0-1.0) mg/dL Direct Bilirubin (0.0-0.5) mg/dL AST (5-31) U/L ALT (0-31) U/L Alkaline Phosphatase (39-117) U/L Total Protein (6.5-8.0) g/dL Albumin (3.5-5.0) g/dL Lipase (8-78) U/L Beta-Hydroxybutyrate (0.02-0.27) mmol/L Beta HCG, Quant mIU/mL Urine Color Urine Appearance Urine pH (5.0-9.0) Ur Specific [place] (1.005-1.025) Urine Protein (Neg-Trace) mg/dL Urine Glucose (UA) (Negative) mg/dL Urine Ketones (Negative) mg/dL Urine Blood (Negative) Urine Nitrite (Negative) Ur Leukocyte Esterase (Negative) Urine RBC (0-2) /HPF Urine WBC (0-5) /HPF Ur Squamous Epith Cells (0-2) /HPF Urine Bacteria (None Seen) Hyaline Casts (0-2) /LPF Independent Interpretation I performed an independent interpretation of an: CT Scan Radiology Impression Discussion of test interpretation with radiology: I have reviewed the radiologist's reading. Critical Care Time Critical Care Time Critical Care Time: Yes Total Critical Care Time: 40 Attestation: Time is exclusive of separately billable procedures. Time includes: direct patient care, patient reassessment, coordination of patient care, interpretation of data (laboratory data, pulse oximetry, arterial blood gases and chest xrays), review of patient's medical records, medical consultation and documentation of patient care. Procedures excluded from critical care time: central intravenous line placement and electrocardiography. Discharge Plan Discharge Clinical Impression: TOA (tubo-ovarian abscess) Patient Disposition: Xfer [facility] Transfer Details: [facility] Instructions: Ovarian Abscess (ED) Prescriptions: No Action (DME) blood-glucose meter [FreeStyle Lite Meter] Kit See Rx Instructions .ROUTE .MEDSUPPLY Qty: 1 0RF Rx Instructions: To check blood sugars once a day (DME) lancets [FreeStyle Lancets] 28 gauge misc See Rx Instructions .ROUTE .MEDSUPPLY Qty: 100 8RF Rx Instructions: to check blood sugars once a day (DME) FreeStyle Lite Strips Strip See Rx Instructions .ROUTE .MEDSUPPLY Qty: 100 8RF Rx Instructions: to check blood sugars once a day glyburide 5 mg tablet 5 mg PO DAILY Qty: 60 5RF metformin 500 mg tablet 500 mg PO BID Qty: 180 0RF ondansetron 4 mg tablet,disintegrating 4 mg PO Q8H PRN (Reason: nausea and vomiting) Qty: 12 0RF naproxen 500 mg tablet 500 mg PO BID PRN (Reason: pain) Qty: 14 0RF tramadol 50 mg tablet 50 mg PO Q8H PRN (Reason: pain) Qty: 20 0RF Print Language: Taiwanese
[2025-02-11 16:48] LABS: MANUAL DIFF FLAG NO
--- OUTSIDE RECORDS SUMMARY | 2025-02-11 16:57 | XMS_ITS | Clinical Summary ---
Author Organization [facility] Address [address] [place] [address] Care Team Providers Care Clerk Cashier Name Role Phone Joshua Becerra MD Primary Care Provider [phone] Allergies No known active allergies Medications metFORMIN (GLUCOPHAGE) 500 MG tablet Take 500 mg by mouth 2 (two) times a day. 06/26/2022 Active glyBURIDE (DIAbeta) 5 mg tablet Take 5 mg by mouth daily. 08/24/2022 Active benzonatate (TESSALON) 200 MG capsuleIndicatio ns:Upper respiratory tract infection, unspecified type Take 1 capsule (200 mg total) by mouth 3 (three) times a day as needed for cough. 12 capsule 09/07/2022 Active fluticasone (FloNASE) 50 mcg/spray nasal sprayIndications :Upper respiratory tract infection, unspecified type 1 spray into each nostril daily. 1 each 09/07/2022 Active Active Problems No known active problems Social History Tobacco Use Types Packs/Day Years Used Date Smoking Tobacco: Never Assessed Comments Unknown Sex and Gender Information Value Date Recorded Sex Assigned at Not on file Legal Sex Female 9:57 AM EDT Gender Identity Not on file Sexual Orientation Not on file Last Filed Vital Signs Vital Sign Reading Time Taken Comments Blood Pressure 120/91 09/07/2022 10:06 AM EDT Pulse 85 09/07/2022 10:06 AM EDT Temperature 36 C (96.8 F) 09/07/2022 10:06 AM EDT Respiratory Rate - - Oxygen Saturation 96% 09/07/2022 10:06 AM EDT Inhaled Oxygen Concentration - - Weight - - Height - - Body Mass Index - - Plan of Treatment Health Maintenance Due Date Last Done Comments Hepatitis C Virus Screening 1986 HIV Screening 1999 DTaP/Tdap/Td Vaccines (1 - Tdap) 2005 Hepatitis B Vaccines (1 of 3 - 19+ 3-dose series) 2005 Pap Smear (Ages 21-65) 2007 HPV Vaccines (1 - 3-dose SCD M series) 2013 COVID-19 Vaccine ( - 2023-2 5 season) 2024 Influenza Vaccine 01/13/2025 Pneumococcal Vaccine: Pediat merissa (0-5 Years) and At-Risk Patients (6 to 49 Years) Aged Out No longer eligible b ased on patient's age to complete this topic Insurance [facility] [employer] Care Teams Clerk Cashier Relationship Specialty Start Date End Date Joshua Becerra MD [address] [place] [address] PCP - General 09/07/22
[2025-02-11 16:59] LABS: Hematocrit 44.1 % (37.0-47.0); Hemoglobin 15.5 g/dl (12.0-16.0); Imm Gran Abs Auto 0.05 X10*3/uL (0.00-0.03); Imm Gran Pct Auto 0.3 % (0.0-0.4); Lymphocytes Absolute Auto 2.3 X10*3/uL (1.2-4.9); Mean Corpuscular HGB Conc 35.1 g/dl (31.0-35.0); Mean Corpuscular Hemoglobin 28.7 pg (27.0-33.0); Mean Corpuscular Volume 81.5 fL (80.0-98.0); NRBC Abs Auto 0.000 X10*3/uL (0.0-0.012); NRBC Pct Auto 0.0 /100WBC (0.0-0.2); Platelet Count 209 X10*3/uL (160-400); Red Blood Count 5.41 X10*6/uL (4.20-5.50); White Blood Count 14.4 X10*3/uL (4.8-10.8)
[2025-02-11 17:15] LABS: Alanine Aminotransferase 39 U/L (0-31); Albumin Level 4.2 g/dL (3.5-5.0); Alkaline Phosphatase 111 U/L (39-117); Anion Gap 16 (12-20); Aspartate Amino Transferase 22 U/L (5-31); Blood Urea Nitrogen 12 mg/dL (9-16); Calcium 9.5 mg/dL (8.4-10.2); Carbon Dioxide 20 mmol/L (22-29); Chloride 102 mmol/L (96-108); Creatinine Clr Calc Pharmacy 108.9; Estimated Glomerular Filt Rate > 60; Lipase 18 U/L (8-78); Potassium 4.2 mmol/L (3.3-5.1); Sodium 134 mmol/L (135-145); Total Protein 8.0 g/dL (6.5-8.0)
[2025-02-11] MEDS: iohexoL 350 MG/ML 100 ML INFUS..BTL IV (18:01)
[2025-02-11 18:13] LABS: Venous Blood Gas Refer to POC result
[2025-02-11 18:14] LABS: VBG HCO3 24 mmol/L (22-26); VBG O2 % Saturation 75.0 %
[2025-02-11 18:16] LABS: Appearance Urine Clear; Glucose Urine UA >=1000 mg/dL (Negative); PH 6.0 (5.0-9.0); Specific Gravity - Urine >= 1.030 (1.005-1.025); UMIC TRIGGER UACC YES
[2025-02-11 19:36] VITALS: BP 131/76; PULSE 109; RESP 18; O2SAT 97
[2025-02-11] MEDS: metroNIDAZOLE/NS 500 MG/100 ML PIGGYBACK 100 MG IV (19:53)
[2025-02-11 20:35] VITALS: RESP 18
[2025-02-11 21:03] VITALS: BP 124/82; PULSE 96; RESP 16; O2SAT 95
[2025-02-11 21:57] VITALS: BP 115/85; PULSE 107; RESP 22; TEMP 38.6; O2SAT 96
[2025-02-12] VITALS (12 sets, daily range): BP systolic 108–143; BP diastolic 70–86; PULSE 93–104; RESP 16–28; TEMP 36.3–38; O2SAT 94–98
--- NOTE | 2025-02-12 | ECG_ITS ---
Test Reason : TACHY Blood Pressure : */* mmHG Vent. Rate : 100 BPM Atrial Rate : 100 BPM P-R Int : 178 ms QRS Dur : 92 ms QT Int : 346 ms P-R-T Axes : 21 0 24 degrees QTcB Int : 446 ms Normal sinus rhythm Low voltage QRS Borderline ECG When compared with ECG of 25-Dec-2023 17:08, No significant change was found Referred By: Generic ED Physician Electronically Signed By: CARLTON JEAN
[2025-02-12 08:34] LABS: Glucose, Whole Blood 263 mg/dL (60-115)
--- NOTE | 2025-02-12 16:24 | PC.NURSE ---
Addendum entered by Rick Rutledge RN 02/12/25 16:35: care was assumed @ 1600 not 0700 Original Note: This RN assumed care of patient @ 0700 Patient A&O x 3 Patient c/o left sided flank pain rated 5/10 but says toradol was effective. VSS Patient currently waiting to be transferred to [facility]
[2025-02-12 17:50] LABS: MANUAL DIFF FLAG NO
[2025-02-12 17:52] LABS: Hematocrit 38.4 % (37.0-47.0); Hemoglobin 13.1 g/dl (12.0-16.0); Imm Gran Abs Auto 0.07 X10*3/uL (0.00-0.03); Imm Gran Pct Auto 0.5 % (0.0-0.4); Lymphocytes Absolute Auto 3.4 X10*3/uL (1.2-4.9); Mean Corpuscular HGB Conc 34.1 g/dl (31.0-35.0); Mean Corpuscular Hemoglobin 28.5 pg (27.0-33.0); Mean Corpuscular Volume 83.5 fL (80.0-98.0); NRBC Abs Auto 0.000 X10*3/uL (0.0-0.012); NRBC Pct Auto 0.0 /100WBC (0.0-0.2); Platelet Count 195 X10*3/uL (160-400); Red Blood Count 4.60 X10*6/uL (4.20-5.50); White Blood Count 14.5 X10*3/uL (4.8-10.8)
[2025-02-12 18:10] LABS: Anion Gap 13 (12-20); Blood Urea Nitrogen 14 mg/dL (9-16); Calcium 8.8 mg/dL (8.4-10.2); Carbon Dioxide 25 mmol/L (22-29); Chloride 102 mmol/L (96-108); Creatinine Clr Calc Pharmacy 90.1; Estimated Glomerular Filt Rate 56; Potassium 4.1 mmol/L (3.3-5.1); Sodium 136 mmol/L (135-145)
--- NOTE | 2025-02-12 18:46 | PC.NURSE ---
Attempted to call for nurse to nurse report. Spoke with Aracelis, who started the nurse isnt currently on the floor yet and to call back in 20 minutes
--- NOTE | 2025-02-12 19:48 | PC.NURSE ---
nurse to nurse report given to alisha 4. EMS here for transport
== END 2025-02-12 20:33 | disposition short-term general hospital (02) ==
PROVIDERS: Physician Assistant; Student in an Organized Health Care Education/Training Program; Emergency Provider Emergency Medicine
DX: N70.03 Acute salpingitis and oophoritis (principal); R10.2 Pelvic and perineal pain; M54.50 Low back pain, unspecified; R00.0 Tachycardia, unspecified; E66.01 Morbid (severe) obesity due to excess calories; R11.2 Nausea with vomiting, unspecified; R30.0 Dysuria; E11.9 Type 2 diabetes mellitus without complications; Z79.84 Long term (current) use of oral hypoglycemic drugs; Z79.899 Other long term (current) drug therapy
CPT/HCPCS: 36415; 74177; 80048; 80076; 81001; 82010; 82803; 82947; 83605; 83690; 84702; 85025; 87040; 93005; 96361; 96365; 96366; 96375; 96376; 99285; J0696; J1836; J1885; J2270; J2405; Q9967

== ENCOUNTER → 2025-02-11 16:58 | Outpatient (BNV) | payer OTHER, SELFPAY | PROVIDERS: Emergency Provider Student in an Organized Health Care Education/Training Program; Visit Provider Radiology Diagnostic Radiology | DX: N70.11 Chronic salpingitis (principal); R59.0 Localized enlarged lymph nodes | CPT/HCPCS: 74177 ==

== ENCOUNTER → 2025-02-12 06:03 | Outpatient (BNV) | payer OTHER, SELFPAY | PROVIDERS: Emergency Provider Emergency Medicine; Visit Provider Internal Medicine | DX: R00.0 Tachycardia, unspecified (principal) | CPT/HCPCS: 93010 ==